=== PATIENT | female | born 1990 | race Caucasian/White ===

== ENCOUNTER 2017-08-24 00:10 | Emergency (ER) | payer MEDICAID ==
[~2017-08-24] VITALS: Ht 165.1 cm; Wt 67.0 kg
[~2017-08-24 00:10] MED LIST: CYCL10TA10 PO; HYDR-565 PO; METH4TAB3 PO; NO HOME MEDS; ONDA4TAB6 PO
[2017-08-24] MEDS ORDERED: normal saline 1000ml 1,000 ML IV ONE (03:10)
[2017-08-24] MEDS ORDERED: ondansetron/PF 4mg/2ml inj IV ONE (03:10)
[2017-08-24] MEDS ORDERED: morphine 4 MG/ML inj SYRINge IV ONE (03:10)
[2017-08-24 04:10] LABS: CLARITY,URINE CLEAR (Clear); COLOR,URINE YELLOW (Yellow); GLUCOSE, URINE NEGATIVE (Neg); KETONES,URINE 15 mg/dl (Neg); LEUKOCYTE ESTERASE ,URINE NEGATIVE (Neg); NITRITES, URINE NEGATIVE (Neg); OCCULT BLOOD,URINE NEGATIVE (Neg); PROTEIN,URINE NEGATIVE (Neg); URINE HCG NEGATIVE (NEG); UROBILINOGEN,URINE 0.2 E.U/dL (0.2-1.0)
[2017-08-24 04:19] LABS: UA COLLECTION TYPE CLN CATCH MIDSTREAM
[2017-08-24] MEDS ORDERED: ONDA4TAB9 PO (04:35)
[2017-08-24 04:41] VITALS: BP 101/66
== END 2017-08-24 04:45 | disposition home or self-care (01) ==
LOC: ER 00:10
DX: R11.2 Nausea with vomiting, unspecified (principal); R10.9 Unspecified abdominal pain; J45.909 Unspecified asthma, uncomplicated; Z87.442 Personal history of urinary calculi; Z60.2 Problems related to living alone; Z88.2 Allergy status to sulfonamides; Z88.8 Allergy status to other drugs, medicaments and biological substances; Z79.899 Other long term (current) drug therapy
CPT/HCPCS: 81003; 81025; 96361; 96374; 99284; J2405; J7030; J2270

== ENCOUNTER 2020-04-19 08:06 | Emergency (ER) | payer MEDICAID ==
[~2020-04-19] VITALS: Ht 165.1 cm; Wt 69.0 kg
[~2020-04-19 08:06] MED LIST changes: +HYDR-4353 PO; -HYDR-565 PO
--- NOTE | 2020-04-19 08:31 | NUR ---
Pt is complaining of generalized tiredness secondary to lack of sleep. No other symptoms noted at this time. She states her boyfriends dad and shortly following that they , since that time she has been having trouble with sleeping. She states she is scheduled to see her PMD next week.
[2020-04-19] MEDS ORDERED: ESZO1TAB11 PO (09:10)
[2020-04-19 09:22] VITALS: BP 110/69
== END 2020-04-19 09:29 | disposition home or self-care (01) ==
LOC: ER 08:07
DX: G47.00 Insomnia, unspecified (principal); J45.909 Unspecified asthma, uncomplicated; Z87.442 Personal history of urinary calculi; Z98.891 History of uterine scar from previous surgery; Z72.89 Other problems related to lifestyle
CPT/HCPCS: 99283

== ENCOUNTER 2020-05-21 17:52 | Emergency (ER) | payer MEDICAID ==
[~2020-05-21] VITALS: Ht 165.1 cm; Wt 70.1 kg
[~2020-05-21 17:52] MED LIST changes: +ESZO1TAB11 PO
[2020-05-21 18:53] VITALS: BP 122/76
[2020-05-21 19:14] LABS: CLARITY,URINE SLIGHTLY CLOUDY (Clear); COLOR,URINE YELLOW (Yellow); GLUCOSE, URINE NEGATIVE (Neg); KETONES,URINE NEGATIVE (Neg); LEUKOCYTE ESTERASE ,URINE NEGATIVE (Neg); NITRITES, URINE NEGATIVE (Neg); OCCULT BLOOD,URINE NEGATIVE (Neg); PROTEIN,URINE NEGATIVE (Neg); URINE HCG NEGATIVE (NEG); UROBILINOGEN,URINE 0.2 E.U/dL (0.2-1.0)
[2020-05-21 19:20] LABS: UA COLLECTION TYPE VOIDED
[2020-05-21 19:22] LABS: BACTERIA,URINE 1+ /HPF (Neg); RBC,URINE 0-2 /HPF (0-2); WBC,URINE 0-4 /HPF (0-4)
[2020-05-21 19:23] LABS: MUCUS STRANDS MODERATE /LPF (Neg); SQUAMOUS EPITHELIAL CELL,UR MANY /LPF (FEW)
[2020-05-21 19:26] LABS: URINE AMPHETAMINE SCREEN NEGATIVE (Neg); URINE BARBITUATE SCREEN NEGATIVE (Neg); URINE BENZODIAZEPINES SCREEN POSITIVE (Neg); URINE CANNABINOID SCREEN POSITIVE (Neg); URINE COCAINE SCREEN NEGATIVE (Neg); URINE METHADONE SCREEN NEGATIVE (Neg); URINE OPIATE SCREEN NEGATIVE (Neg); URINE PHENCYCLIDINE SCREEN NEGATIVE (Neg)
== END 2020-05-21 18:57 | disposition home or self-care (01) ==
LOC: ER 17:53
DX: F32.9 Major depressive disorder, single episode, unspecified (principal); F41.9 Anxiety disorder, unspecified; R45.851 Suicidal ideations; G47.00 Insomnia, unspecified; J45.909 Unspecified asthma, uncomplicated; Z87.440 Personal history of urinary (tract) infections; Z98.891 History of uterine scar from previous surgery; Z88.2 Allergy status to sulfonamides; Z88.1 Allergy status to other antibiotic agents; Z79.899 Other long term (current) drug therapy
CPT/HCPCS: 80305; 81001; 81025; 99283

== ENCOUNTER 2021-09-10 07:09 | Emergency (ER) | payer MEDICAID ==
[~2021-09-10] VITALS: Ht 165.1 cm; Wt 81.2 kg
[~2021-09-10 07:09] MED LIST changes: +CYCL-524 PO; -CYCL10TA10 PO
[2021-09-10 07:11] VITALS: BP 129/81
[2021-09-10] MEDS ORDERED: MELO-102 PO (08:32)
== END 2021-09-10 08:36 | disposition home or self-care (01) ==
LOC: ER 07:10
DX: S60.211A Contusion of right wrist, initial encounter (principal); F32.9 Major depressive disorder, single episode, unspecified; J45.909 Unspecified asthma, uncomplicated; Z87.442 Personal history of urinary calculi; Z72.89 Other problems related to lifestyle; Z60.2 Problems related to living alone; Z98.890 Other specified postprocedural states; W18.39XA Other fall on same level, initial encounter; Y93.89 Activity, other specified; Y92.89 Other specified places as the place of occurrence of the external cause; Y99.8 Other external cause status
CPT/HCPCS: 29125; 73110; 99284; L3908

== ENCOUNTER 2021-12-02 08:35 | Emergency (ER) | payer MEDICAID ==
[~2021-12-02] VITALS: Ht 165.1 cm; Wt 68.2 kg
[~2021-12-02 08:35] MED LIST changes: +MELO-102 PO
[2021-12-02 12:26] VITALS: BP 122/70
[2021-12-02] MEDS ORDERED: ONDA8TAB13 PO (12:50)
[2021-12-02] MEDS ORDERED: ondansetron 4mg rapidly disintigrating tab PO ONE (12:50)
== END 2021-12-02 12:59 | disposition home or self-care (01) ==
LOC: ER 08:36
DX: R11.2 Nausea with vomiting, unspecified (principal); J45.909 Unspecified asthma, uncomplicated; Z88.1 Allergy status to other antibiotic agents; Z88.2 Allergy status to sulfonamides
CPT/HCPCS: 99283

== ENCOUNTER 2023-08-30 11:22 | Emergency (ER) | payer MEDICAID ==
[~2023-08-30] VITALS: Ht 165.1 cm; Wt 72.7 kg
[~2023-08-30 11:22] MED LIST changes: +ONDA8TAB13 PO
[2023-08-30 11:28] VITALS: BP 120/85; PULSE 113; RESP 14; TEMP 98; O2SAT 100
[2023-08-30 11:50] LABS: BASOPHILS # (AUTO) 0.1 X10'3 (0-0.2); BASOPHILS % (AUTO) 0.4 % (0-1); EOSINOPHILS # (AUTO) 0.1 X10'3 (0-0.9); EOSINOPHILS % (AUTO) 1.2 % (0-6); HEMATOCRIT 47.1 % (35.0-45.0); HEMOGLOBIN 15.7 g/dl (12.0-16.0); LYMPHOCYTES # (AUTO) 2.6 X10'3 (1.1-4.8); LYMPHOCYTES % (AUTO) 21.4 % (21-51); MEAN CORPUSCULAR HEMOGLOBIN 28.4 PG (27.0-31.0); MEAN CORPUSCULAR HGB CONC 33.2 g/dL (33.0-36.5); MEAN CORPUSCULAR VOLUME 85.5 FL (78-98); MEAN PLATELET VOLUME 10.1 FL (7.4-10.4); MONOCYTES # (AUTO) 0.6 X10'3 (0-0.9); MONOCYTES % (AUTO) 4.8 % (2-12); NEUTROPHILS # (AUTO) 8.7 X10'3 (1.8-7.7); NEUTROPHILS % (AUTO) 72.2 % (42-75); PLATELET COUNT 270 X10'3 (140-440); RED BLOOD COUNT 5.51 X10'6 (4.20-5.60); WHITE BLOOD COUNT 12.1 X10'3 (4.5-11.0)
[2023-08-30 12:13] LABS: ALANINE AMINOTRANSFERASE 35 U/L (12-78); ALBUMIN 4.3 G/DL (3.4-5.0); ALBUMIN/GLOBULIN RATIO 1.2 (1.1-1.5); ALKALINE PHOSPHATASE 68 IU/L (46-116); ANION GAP 8 (8-16); ASPARTATE AMINO TRANSFERASE 17 U/L (10-37); BILIRUBIN,TOTAL 0.5 MG/DL (0.1-1.0); BLOOD UREA NITROGEN 16 MG/DL (7-18); BUN/CREATININE RATIO 28.1 (10.0-20.0); CALCIUM 9.4 MG/DL (8.5-10.1); CHLORIDE 104 MMOL/L (99-107); CREATININE 0.57 MG/DL (0.40-0.90); GLUCOSE 106 MG/DL (70-104); POTASSIUM 4.1 MMOL/L (3.5-5.1); SODIUM 140 MMOL/L (135-145); TOTAL CARBON DIOXIDE 28.3 MMOL/L (24-32); TOTAL PROTEIN 7.9 G/DL (6.4-8.2); eCRCL 130 ML/MIN; eGFR > 90 ML/MIN
[2023-08-30 12:20] LABS: PRO BRAIN NATRIURETIC PEPTIDE 101 PG/ML (0-125)
== END 2023-08-30 14:28 | disposition left against medical advice (07) ==
LOC: ER 11:22
DX: R00.0 Tachycardia, unspecified (principal); Z53.21 Procedure and treatment not carried out due to patient leaving prior to being seen by health care provider
CPT/HCPCS: 36415; 71045; 80053; 83880; 84484; 85025; 93005